=== PATIENT | male | born 1980 | race Caucasian/White ===

== ENCOUNTER 2021-01-18 05:03 | Day surgery (SDC) | payer OTHER ==
[2021-01-14 15:39] VITALS: BMI 29.3
[2021-01-18] MEDS ORDERED: LIDOCAINE HCL 2% JELLY 10 ML CARTRIDGE ONE (10:48)
[2021-01-18] MEDS ORDERED: LIDOCAINE HCL 2% JELLY 10 ML CARTRIDGE TP ONE (10:49)
[2021-01-18] MEDS ORDERED: LIDOCAINE HCL 2% JELLY (5 ML/TUBE) TP ONE (10:49)
[2021-01-18 11:53] VITALS: BP 130/84; PULSE 53
[2021-01-18 11:54] VITALS: TEMP 97.7
== END 2021-01-18 12:09 | disposition home or self-care (01) ==
LOC: JASU-ENDO 05:03
PROVIDERS: ATTEND Internal Medicine Gastroenterology
PROC: 0DBL8ZX Excision of Transverse Colon, Via Natural or Artificial Opening Endoscopic, Diagnostic (ICD-10-PCS; 2021-01-18)
PROC: 0DBP8ZX Excision of Rectum, Via Natural or Artificial Opening Endoscopic, Diagnostic (ICD-10-PCS; principal; 2021-01-18 11:00)
DX: Z12.11 Encounter for screening for malignant neoplasm of colon (principal); Z80.0 Family history of malignant neoplasm of digestive organs; Z86.010 Personal history of colon polyps; D12.3 Benign neoplasm of transverse colon; K64.8 Other hemorrhoids; K57.30 Diverticulosis of large intestine without perforation or abscess without bleeding; K64.4 Residual hemorrhoidal skin tags
CPT/HCPCS: 88305-TC